=== PATIENT | female | born 1950 | race Two or more races ===

== ENCOUNTER 2016-04-28 06:02 | Day surgery (SDC) | payer MEDICARE, OTHER ==
[~2016-04-28] VITALS: Ht 154.9 cm; Wt 56.9 kg
[2016-04-28 06:45] VITALS: BP 133/70; PULSE 69; RESP 16
[2016-04-28] MEDS ORDERED: LISI40TA9 PO (06:50)
[2016-04-28] MEDS ORDERED: GLIP5TAB13 PO (06:50)
[2016-04-28] MEDS ORDERED: SITA100T8 PO (06:50)
[2016-04-28] MEDS ORDERED: ASPI-664 PO (06:50)
[2016-04-28] MEDS ORDERED: METF-480 PO (06:50)
[2016-04-28 06:56] VITALS: Ht 154.9 cm; Wt 56.9 kg
[2016-04-28] MEDS ORDERED: FENTAnyl 50 MCG/ML VIAL ONE (07:56)
[2016-04-28] MEDS ORDERED: MIDAZOLAM 1 MG/ML 2 ML INJ ONE (07:57)
[2016-04-28 08:20] VITALS: BP 105/60; PULSE 62; RESP 15
--- NOTE | 2016-04-28 10:07 | GILP ---
DATE OF PROCEDURE: 04/28/2016 PROCEDURE: Colonoscopy. SURGEON: Dominique Martini MD PREOPERATIVE DIAGNOSIS: Screening colonoscopy. POSTOPERATIVE DIAGNOSES: 1. Colonoscopy all the way to the cecum. 2. Internal hemorrhoids. 3. No colon neoplasm was identified. INDICATION FOR THE PROCEDURE: Ms. Alejandra Hopkins is a 66-year-old female patient who was schedu led for screening colonoscopy. The procedure and possible complications are well explained to the patient, she understood and conse nted to the procedure. DESCRIPTION OF PROCEDURE: Under the influence of fentanyl and Versed, the colonoscope was carefully introduced in the rectum and under direct vision, it was advanced all the way to the cecum. FINDINGS: The patient had internal hemorrhoids. No colon neoplasm was identified. She tolerated the procedure very well and there was no complication from the procedure. At the end of the procedures, she was awake with stable vital signs and she was discharged home to the care of her family. IMPRESSION: 1. Colonoscopy all the way to the cecum. 2. Internal hemorrhoids. 3. No colon neoplasm was identified. PLAN: Next screening colonoscopy in 10 years. Dictated By: DOMINIQUE SERRATO/DANIEL Conf#: [id number] DID#: [id number] CC: DOMINIQUE MARTINI MD;*EndCC*
== END 2016-04-28 11:19 | disposition home or self-care (01) ==
LOC: GIL 06:02
PROVIDERS: ATTEND Internal Medicine Gastroenterology
DX: Z12.11 Encounter for screening for malignant neoplasm of colon (principal); K64.8 Other hemorrhoids; I10 Essential (primary) hypertension; E11.9 Type 2 diabetes mellitus without complications; E78.5 Hyperlipidemia, unspecified
CPT/HCPCS: 45378; 82962; J2250; J3010